=== PATIENT | male | born 1990 | race Caucasian/White ===

== ENCOUNTER 2017-09-18 07:28 | Inpatient (IN) | payer OTHER ==
[2017-09-18] MEDS ORDERED: SOD CHLORIDE 0.9% 1,000 ML IV (07:50)
[2017-09-18] MEDS: ONDANSETRON 4 MG INJ IV ×5 (08:13→23:59)
[2017-09-18] MEDS: CEFTRIAXONE 1 GM/50 ML (PMX) 50 ML IVPB (08:13)
[2017-09-18] MEDS: morphine 4 MG/ML VIAL IV (08:13)
[2017-09-18] MEDS: SODIUM CHLORIDE 0.9% 1L BAG IV* (08:14)
[2017-09-18 08:32] LABS: ADD MAN DIFF? NO
[2017-09-18 08:50] LABS: BASOPHILS % 0.4 % (0.0-2.0); HEMATOCRIT 40.6 % (42.0-52.0); HEMOGLOBIN 14.9 g/dl (14.0-18.0); LYMPHOCYTES # 2.4 10^3/ul (0.8-2.9); LYMPHOCYTES % 22.2 % (15.0-51.0); MEAN CORPUSCULAR HEMOGLOBIN 35.5 pg (29.0-33.0); MEAN CORPUSCULAR HGB CONC 36.7 g/dl (32.0-37.0); MEAN CORPUSCULAR VOLUME 96.7 fl (82.0-101.0); MEAN PLATELET VOLUME 10.1 fl (7.4-10.4); MONOCYTE # 0.9 10^3/ul (0.3-0.9); NEUTROPHIL # 7.3 10^3/ul (1.6-7.5); NEUTROPHILS % 68.9 % (39.0-77.0); PLATELET COUNT 122 10^3/UL (140-415); RED CELL DISTRIBUTION WIDTH 12.3 % (11.5-14.5)
[2017-09-18 08:50] LABS: WHITE BLOOD COUNT 10.6 10^3/ul (4.8-10.8)
[2017-09-18 09:03] LABS: ALANINE AMINOTRANSFERASE 125 IU/L (13-69); ALBUMIN 5.3 g/dl (3.3-4.9); ALBUMIN/GLOBULIN RATIO 1.26; ALKALINE PHOSPHATASE 142 IU/L (42-121); ANION GAP 27 (8-16); ASPARTATE AMINO TRANSFERASE 289 IU/L (15-46); BILIRUBIN,INDIRECT 1.6 mg/dl (0-1.1); BILIRUBIN,TOTAL 1.6 mg/dl (0.2-1.3); BLOOD UREA NITROGEN 8 mg/dl (7-20); CALCIUM 10.2 mg/dl (8.4-10.2); CARBON DIOXIDE 22 mmol/L (21-31); CHLORIDE 95 mmol/L (97-110); CREATININE 0.83 mg/dl (0.61-1.24); GLUCOSE 109 mg/dl (70-220); POTASSIUM 3.8 mmol/L (3.5-5.1); SODIUM 140 mmol/L (135-144); TOTAL PROTEIN 9.5 g/dl (6.1-8.1)
[2017-09-18 09:03] LABS: LACTIC ACID 2.8 mmol/L (0.5-2.0)
[2017-09-18 09:15] LABS: TROPONIN-I < 0.012 ng/ml (0.00-0.12)
[2017-09-18 09:22] LABS: INR 0.95; PROTIME 12.8 Sec (11.9-14.9)
[2017-09-18 09:23] LABS: PARTIAL THROMBOPLASTIN TIME 28.3 Sec (25.0-35.0)
[2017-09-18 09:32] LABS: LIPASE 393 U/L (23-300)
[2017-09-18] MEDS: HYDROmorphONE 0.5 MG/0.5 ML SYG IV (09:32)
[2017-09-18 11:13] LABS: LACTIC ACID 1.3 mmol/L (0.5-2.0)
[2017-09-18] MEDS ORDERED: ONDANSETRON 4 MG INJ IV (11:30)
[2017-09-18 12:12] LABS: ADD UMIC YES; UR ASCORBIC ACID NEGATIVE (NEGATIVE); UR BILIRUBIN (Dip) 1+ mg/dL (NEGATIVE); UR BLOOD (Dip) 1+ mg/dL (NEGATIVE); UR CLARITY SLIGHTLY CLOUDY (CLEAR); UR COLOR AMBER (YELLOW); UR GLUCOSE (Dip) NEGATIVE (NEGATIVE); UR KETONES (Dip) 1+ mg/dL (NEGATIVE); UR LEUKOCYTE ESTERASE (Dip) 2+ Leu/ul (NEGATIVE); UR MUCUS MANY /HPF (NONE SEEN); UR NITRITE (Dip) NEGATIVE (NEGATIVE); UR RBC 9 /HPF (0-5); UR SPECIFIC GRAVITY (Dip) 1.024 (1.003-1.030); UR SQUAMOUS EPITHELIAL CELL FEW /HPF (FEW); UR TOTAL PROTEIN (Dip) 2+ mg/dl (NEGATIVE); UR UROBILINOGEN (Dip) 1+ mg/dL (NEGATIVE); UR WBC 56 /HPF (0-5)
[2017-09-18] MEDS ORDERED: NACL 0.9% 3 ML SYG IV (12:30)
[2017-09-18] MEDS: SOD CHLORIDE 0.9% 1,000 ML IV ×3 (12:30→19:55)
[2017-09-18] MEDS ORDERED: ALPRAZOLAM 1 MG TAB PO (12:30)
[2017-09-18] MEDS ORDERED: LORAZEPAM 1 MG TAB PO (13:00)
[2017-09-18] MEDS: PANTOPRAZOLE 40 MG INJ IV ×2 (13:09→20:13)
[2017-09-18 13:19] LABS: LACTIC ACID 1.3 mmol/L (0.5-2.0)
[2017-09-18 13:24] LABS: ETHANOL < 10.0 mg/dl
[2017-09-18] MEDS: morphine 2 MG INJ IV ×2 (14:36→19:54)
[2017-09-18] MEDS ORDERED: LORAZEPAM 2 MG INJ IV ×2 (16:30)
[2017-09-18] MEDS: ACETAMINOPHEN 325 MG TAB PO (20:53)
[2017-09-19] MEDS: METOCLOPRAMIDE 10 MG INJ IV ×3 (01:49→20:32)
[2017-09-19] MEDS: OXYCODONE/ACETAMINOPHEN (10/325) TAB PO ×3 (01:50→10:26)
[2017-09-19] MEDS: SOD CHLORIDE 0.9% 1,000 ML IV ×2 (03:02→14:01)
[2017-09-19 05:16] LABS: ADD MAN DIFF? NO
[2017-09-19 05:20] LABS: ABNORMAL IP MESSAGE 1; BASOPHILS % 0.4 % (0.0-2.0); EOSINOPHILS # 0.1 10^3/ul (0.0-0.5); EOSINOPHILS % 1.1 % (0.0-7.0); HEMATOCRIT 33.6 % (42.0-52.0); LYMPHOCYTES # 1.9 10^3/ul (0.8-2.9); LYMPHOCYTES % 33.8 % (15.0-51.0); MEAN CORPUSCULAR HEMOGLOBIN 35.2 pg (29.0-33.0); MEAN CORPUSCULAR HGB CONC 35.7 g/dl (32.0-37.0); MEAN CORPUSCULAR VOLUME 98.5 fl (82.0-101.0); MEAN PLATELET VOLUME 10.4 fl (7.4-10.4); MONOCYTE # 0.6 10^3/ul (0.3-0.9); PLATELET COUNT 83 10^3/UL (140-415); POSITIVE DIFF @See below; RED BLOOD COUNT 3.41 10^6/ul (4.70-6.10); RED CELL DISTRIBUTION WIDTH 12.6 % (11.5-14.5)
[2017-09-19 05:20] LABS: WHITE BLOOD COUNT 5.6 10^3/ul (4.8-10.8)
[2017-09-19 06:03] LABS: ALANINE AMINOTRANSFERASE 77 IU/L (13-69); ALBUMIN 4.2 g/dl (3.3-4.9); ALKALINE PHOSPHATASE 89 IU/L (42-121); ANION GAP 20 (8-16); ASPARTATE AMINO TRANSFERASE 161 IU/L (15-46); BILIRUBIN,INDIRECT 0.8 mg/dl (0-1.1); BILIRUBIN,TOTAL 0.8 mg/dl (0.2-1.3); BLOOD UREA NITROGEN 2 mg/dl (7-20); CALCIUM 8.9 mg/dl (8.4-10.2); CARBON DIOXIDE 24 mmol/L (21-31); CHLORIDE 99 mmol/L (97-110); CREATININE 0.78 mg/dl (0.61-1.24); GLUCOSE 82 mg/dl (70-220); LIPASE 161 U/L (23-300); MAGNESIUM 1.4 mg/dl (1.7-2.5); POTASSIUM 3.9 mmol/L (3.5-5.1); SODIUM 139 mmol/L (135-144); TOTAL PROTEIN 7.7 g/dl (6.1-8.1)
[2017-09-19] MEDS ORDERED: VANCOMYCIN IV PER PHARMACY XX (07:30)
[2017-09-19] MEDS: ONDANSETRON 4 MG INJ IV ×2 (07:34→17:28)
[2017-09-19] MEDS: FOLIC ACID 1 MG TAB PO (09:51)
[2017-09-19] MEDS: MULTIVITAMINS THERAPEUTIC TAB PO (09:51)
[2017-09-19] MEDS: THIAMINE 100 MG TAB PO (09:51)
[2017-09-19] MEDS: VANCOMYCIN 1.5 GM in SOD CHLORIDE 0.9% 250 ML IVPB (09:56)
[2017-09-19 12:51] LABS: LYMPHOCYTE - % CD4 (HELPER) 23 % (30-61); LYMPHOCYTE - %CD8 (SUPPRESSOR) 56 % (12-42); LYMPHOCYTE - ABSOLUTE 2458 cells/uL (850-3900); LYMPHOCYTE - ABSOLUTE CD4 560 cells/uL (490-1740); LYMPHOCYTE - ABSOLUTE CD8 1378 cells/uL (180-1170); LYMPHOCYTE - CD4/CD8 RATIO 0.41 (0.86-5.00)
[2017-09-19] MEDS: FAMOTIDINE 20 MG INJ IV ×2 (13:56→20:32)
[2017-09-19] MEDS: DOXYCYCLINE 100 MG in SOD CHLORIDE 0.9% 250 ML IVPB ×2 (13:59→21:19)
[2017-09-19] MEDS: MAGNESIUM SULFATE 2 GM/50 ML 50 ML IVPB (14:00)
[2017-09-19] MEDS: VANCOMYCIN 1 GM 250 ML IVPB (17:29)
[2017-09-19] MEDS: morphine 2 MG INJ IV ×3 (17:36→20:33)
[2017-09-20] MEDS: VANCOMYCIN 1 GM 250 ML IVPB (01:04)
[2017-09-20] MEDS: OXYCODONE/ACETAMINOPHEN (10/325) TAB PO ×2 (01:05→05:14)
[2017-09-20] MEDS: SOD CHLORIDE 0.9% 1,000 ML IV (03:39)
[2017-09-20] MEDS: ONDANSETRON 4 MG INJ IV ×2 (05:14→13:53)
[2017-09-20 06:33] LABS: ADD MAN DIFF? NO
[2017-09-20 06:43] LABS: WHITE BLOOD COUNT 5.7 10^3/ul (4.8-10.8)
[2017-09-20 06:43] LABS: BASOPHILS % 0.7 % (0.0-2.0); EOSINOPHILS # 0.1 10^3/ul (0.0-0.5); EOSINOPHILS % 1.2 % (0.0-7.0); HEMATOCRIT 35.3 % (42.0-52.0); HEMOGLOBIN 12.6 g/dl (14.0-18.0); LYMPHOCYTES # 1.7 10^3/ul (0.8-2.9); LYMPHOCYTES % 29.1 % (15.0-51.0); MEAN CORPUSCULAR HEMOGLOBIN 35.2 pg (29.0-33.0); MEAN CORPUSCULAR HGB CONC 35.7 g/dl (32.0-37.0); MEAN CORPUSCULAR VOLUME 98.6 fl (82.0-101.0); MEAN PLATELET VOLUME 10.1 fl (7.4-10.4); MONOCYTE # 0.7 10^3/ul (0.3-0.9); MONOCYTES % 11.9 % (0.0-11.0); NEUTROPHIL # 3.2 10^3/ul (1.6-7.5); NEUTROPHILS % 56.6 % (39.0-77.0); PLATELET COUNT 111 10^3/UL (140-415); RED BLOOD COUNT 3.58 10^6/ul (4.70-6.10); RED CELL DISTRIBUTION WIDTH 12.6 % (11.5-14.5)
[2017-09-20 07:07] LABS: ALANINE AMINOTRANSFERASE 79 IU/L (13-69); ALBUMIN 4.6 g/dl (3.3-4.9); ALBUMIN/GLOBULIN RATIO 1.35; ALKALINE PHOSPHATASE 96 IU/L (42-121); ANION GAP 21 (8-16); ASPARTATE AMINO TRANSFERASE 197 IU/L (15-46); BILIRUBIN,INDIRECT 0.4 mg/dl (0-1.1); BILIRUBIN,TOTAL 0.4 mg/dl (0.2-1.3); BLOOD UREA NITROGEN 2 mg/dl (7-20); CALCIUM 9.1 mg/dl (8.4-10.2); CARBON DIOXIDE 22 mmol/L (21-31); CHLORIDE 99 mmol/L (97-110); CREATININE 0.73 mg/dl (0.61-1.24); GLUCOSE 62 mg/dl (70-220); POTASSIUM 3.6 mmol/L (3.5-5.1); SODIUM 138 mmol/L (135-144)
[2017-09-20] MEDS: FOLIC ACID 1 MG TAB PO (08:25)
[2017-09-20] MEDS: MULTIVITAMINS THERAPEUTIC TAB PO (08:25)
[2017-09-20] MEDS: THIAMINE 100 MG TAB PO (08:25)
[2017-09-20] MEDS: DOXYCYCLINE 100 MG in SOD CHLORIDE 0.9% 250 ML IVPB (08:25)
[2017-09-20 09:10] LABS: VANCOMYCIN,TROUGH 10.1 ug/ml (10.0-20.0)
[2017-09-20] MEDS: FAMOTIDINE 20 MG INJ IV (09:17)
[2017-09-20] MEDS: morphine 2 MG INJ IV (09:23)
[2017-09-20] MEDS: SENNA TAB PO (11:23)
[2017-09-20] MEDS: DOCUSATE SODIUM 100 MG CAP PO (11:23)
[2017-09-20] MEDS ORDERED: INFLUENZA VIRUS VACCINE 0.5 ML SYG IM* (20:00)
== END 2017-09-20 17:55 | disposition home or self-care (01) | DRG 432 ==
LOC: E/R 07:28 → MS3 11:29
DX: K70.10 Alcoholic hepatitis without ascites (principal); B20 Human immunodeficiency virus [HIV] disease; K85.90 Acute pancreatitis without necrosis or infection, unspecified; K92.0 Hematemesis; N30.00 Acute cystitis without hematuria; F10.10 Alcohol abuse, uncomplicated; F41.8 Other specified anxiety disorders; Z72.0 Tobacco use; K29.70 Gastritis, unspecified, without bleeding; K76.0 Fatty (change of) liver, not elsewhere classified
CPT/HCPCS: 36415; 71045; 74176; 76705; 76870; 80053; 80202; 80306; 81001; 82962; 83605; 83690; 83735; 84484; 85025; 85610; 85730; 86360; 86850; 86900; 86901; 87040; 87086; 87591; 90686; 93005; 96361; 96374; 96375; 96376; 99291-25

== ENCOUNTER 2017-09-28 10:17 | Emergency (ER) | payer OTHER ==
[2017-09-28] MEDS: HYDROCODONE/APAP (5/325) TAB PO (10:51)
[2017-09-28] MEDS: DIPHTH/TET/ACEL PERTUSS (ADULT) 0.5 ML VIAL IM (10:52)
[2017-09-28] MEDS: LIDOCAINE 1% (MDV) 10 ML INJ INJ (10:52)
== END 2017-09-28 11:52 | disposition home or self-care (01) ==
LOC: FTE 10:17
DX: S01.81XA Laceration without foreign body of other part of head, initial encounter (principal); F17.210 Nicotine dependence, cigarettes, uncomplicated; V18.4XXA Pedal cycle driver injured in noncollision transport accident in traffic accident, initial encounter; Z23 Encounter for immunization
CPT/HCPCS: 12013; 90471; 90715; 99283-25

== ENCOUNTER 2017-10-05 12:36 | Emergency (ER) | payer OTHER | END 2017-10-05 13:13 | disposition home or self-care (01) | LOC: E/R 13:13 | DX: Z48.02 Encounter for removal of sutures (principal); Z87.891 Personal history of nicotine dependence | CPT/HCPCS: 99281 ==

== ENCOUNTER 2017-10-10 14:41 | Inpatient (IN) | payer OTHER ==
[2017-10-10] MEDS: morphine 4 MG/ML VIAL IV (15:44)
[2017-10-10] MEDS: ONDANSETRON 4 MG INJ IV (15:44)
[2017-10-10] MEDS: FAMOTIDINE 20 MG INJ IV (15:44)
[2017-10-10] MEDS: SOD CHLORIDE 0.9% 1,000 ML IV ×2 (15:49→18:59)
[2017-10-10 15:55] LABS: ADD MAN DIFF? NO
[2017-10-10 15:58] LABS: BASOPHILS % 0.4 % (0.0-2.0); EOSINOPHILS # 0.1 10^3/ul (0.0-0.5); EOSINOPHILS % 1.1 % (0.0-7.0); HEMATOCRIT 41.1 % (42.0-52.0); HEMOGLOBIN 14.3 g/dl (14.0-18.0); LYMPHOCYTES # 1.8 10^3/ul (0.8-2.9); LYMPHOCYTES % 17.5 % (15.0-51.0); MEAN CORPUSCULAR HEMOGLOBIN 35.1 pg (29.0-33.0); MEAN CORPUSCULAR HGB CONC 34.8 g/dl (32.0-37.0); MEAN PLATELET VOLUME 9.9 fl (7.4-10.4); MONOCYTE # 0.8 10^3/ul (0.3-0.9); MONOCYTES % 7.3 % (0.0-11.0); NEUTROPHIL # 7.7 10^3/ul (1.6-7.5); NEUTROPHILS % 73.1 % (39.0-77.0); PLATELET COUNT 196 10^3/UL (140-415); RED BLOOD COUNT 4.07 10^6/ul (4.70-6.10); RED CELL DISTRIBUTION WIDTH 12.7 % (11.5-14.5)
[2017-10-10 15:58] LABS: WHITE BLOOD COUNT 10.5 10^3/ul (4.8-10.8)
[2017-10-10 16:30] LABS: ALANINE AMINOTRANSFERASE 108 IU/L (13-69); ALBUMIN 4.6 g/dl (3.3-4.9); ALBUMIN/GLOBULIN RATIO 1.09; ALKALINE PHOSPHATASE 123 IU/L (42-121); ANION GAP 18 (8-16); ASPARTATE AMINO TRANSFERASE 151 IU/L (15-46); BILIRUBIN,INDIRECT 0.5 mg/dl (0-1.1); BILIRUBIN,TOTAL 0.5 mg/dl (0.2-1.3); BLOOD UREA NITROGEN 7 mg/dl (7-20); CALCIUM 9.8 mg/dl (8.4-10.2); CARBON DIOXIDE 26 mmol/L (21-31); CHLORIDE 100 mmol/L (97-110); CREATININE 0.86 mg/dl (0.61-1.24); GLUCOSE 110 mg/dl (70-220); POTASSIUM 3.9 mmol/L (3.5-5.1); SODIUM 140 mmol/L (135-144); TOTAL PROTEIN 8.8 g/dl (6.1-8.1)
[2017-10-10 16:58] LABS: LIPASE 21678 U/L (23-300)
[2017-10-10] MEDS: HYDROmorphONE 0.5 MG/0.5 ML SYG IV ×3 (17:14→23:18)
[2017-10-10] MEDS ORDERED: HYDROmorphONE 0.5 MG/0.5 ML SYG IV (19:00)
[2017-10-10] MEDS ORDERED: ONDANSETRON 4 MG INJ IV ×3 (19:00→19:30)
[2017-10-10 19:12] LABS: ADD UMIC NO; UR ASCORBIC ACID NEGATIVE (NEGATIVE); UR BILIRUBIN (Dip) NEGATIVE (NEGATIVE); UR BLOOD (Dip) NEGATIVE (NEGATIVE); UR CLARITY CLEAR (CLEAR); UR COLOR STRAW (YELLOW); UR GLUCOSE (Dip) NEGATIVE (NEGATIVE); UR KETONES (Dip) NEGATIVE (NEGATIVE); UR LEUKOCYTE ESTERASE (Dip) NEGATIVE Leu/ul (NEGATIVE); UR NITRITE (Dip) NEGATIVE (NEGATIVE); UR SPECIFIC GRAVITY (Dip) 1.004 (1.003-1.030); UR TOTAL PROTEIN (Dip) NEGATIVE (NEGATIVE); UR UROBILINOGEN (Dip) NEGATIVE (NEGATIVE)
[2017-10-10] MEDS ORDERED: NACL 0.9% 3 ML SYG IV (19:30)
[2017-10-10] MEDS ORDERED: POTASSIUM CHLORIDE 50 ML IVPB (19:30)
[2017-10-10] MEDS ORDERED: ZOLPIDEM 5 MG TAB PO (19:30)
[2017-10-10] MEDS ORDERED: ACETAMINOPHEN 325 MG TAB PO ×2 (19:30)
[2017-10-10] MEDS ORDERED: DOCUSATE SODIUM 100 MG CAP PO (19:30)
[2017-10-10] MEDS ORDERED: BISACODYL (EC) 5 MG TAB PO (19:30)
[2017-10-10] MEDS ORDERED: HYDROCODONE/APAP (5/325) TAB PO (19:30)
[2017-10-10] MEDS ORDERED: ALPRAZOLAM 1 MG TAB PO (20:00)
[2017-10-10 20:14] LABS: ADD UMIC NO; UR ASCORBIC ACID NEGATIVE (NEGATIVE); UR BILIRUBIN (Dip) NEGATIVE (NEGATIVE); UR BLOOD (Dip) NEGATIVE (NEGATIVE); UR CLARITY CLEAR (CLEAR); UR COLOR STRAW (YELLOW); UR GLUCOSE (Dip) NEGATIVE (NEGATIVE); UR KETONES (Dip) NEGATIVE (NEGATIVE); UR LEUKOCYTE ESTERASE (Dip) NEGATIVE Leu/ul (NEGATIVE); UR NITRITE (Dip) NEGATIVE (NEGATIVE); UR SPECIFIC GRAVITY (Dip) 1.004 (1.003-1.030); UR TOTAL PROTEIN (Dip) NEGATIVE (NEGATIVE); UR UROBILINOGEN (Dip) NEGATIVE (NEGATIVE)
[2017-10-10] MEDS: DEXTROSE 5%-0.45% NACL 1,000 ML IV (20:16)
[2017-10-10 20:33] LABS: GAMMA GLUTAMYL TRANSPEPTIDASE 546 IU/L (0-50); LACTIC ACID 1.1 mmol/L (0.5-2.0)
[2017-10-10 20:37] LABS: AMMONIA < 9 umol/l (9-30)
[2017-10-10 20:47] LABS: COCAINE Negative (NEGATIVE)
[2017-10-10 20:49] LABS: AMPHETAMINE/METHAMPHETAMINE Negative (NEGATIVE); BARBITURATES Negative (NEGATIVE); BENZODIAZEPINES Positive (NEGATIVE); CANNABINOIDS Negative (NEGATIVE); OPIATES Positive (NEGATIVE)
[2017-10-10 21:02] LABS: HEPATITIS B SURFACE ANTIGEN NEGATIVE (NEGATIVE)
[2017-10-10 21:17] LABS: ERYTHROCYTE SEDIMENTATION RATE 24 mm/Hr (0-15)
[2017-10-10 21:19] LABS: HEPATITIS B SURFACE ANTIBODY POSITIVE (NEGATIVE)
[2017-10-10 21:20] LABS: HEPATITIS B CORE ANTIBODY NEGATIVE (NEGATIVE); HEPATITIS C VIRAL ANTIBODY NEGATIVE (NEGATIVE)
[2017-10-10] MEDS: RIFAXIMIN 550 MG TAB PO (21:44)
[2017-10-10] MEDS: CIPROFLOXACIN 400MG/D5W 200 ML IVPB (21:46)
[2017-10-11] MEDS: metroNIDAZOLE 500 MG/NS (PMX) 100 ML IVPB ×2 (00:28→05:50)
[2017-10-11] MEDS: DEXTROSE 5%-0.45% NACL 1,000 ML IV ×2 (03:24→10:25)
[2017-10-11] MEDS: HYDROmorphONE 0.5 MG/0.5 ML SYG IV ×2 (04:25→09:32)
[2017-10-11] MEDS: PANTOPRAZOLE 40 MG INJ IV (05:50)
[2017-10-11 06:35] LABS: CHOL/HDL RATIO 3.3 RATIO; HDL CHOLESTEROL 51 mg/dl (30-63); LDL CHOLESTEROL,CALCULATED 89 mg/dl; TRIGLYCERIDES 149 mg/dl (0-149)
[2017-10-11 06:35] LABS: CHOLESTEROL 170 mg/dl (100-200)
[2017-10-11 07:01] LABS: HEMOGLOBIN A1C 4.7 % (0-5.9)
[2017-10-11 07:19] LABS: FREE THYROXINE INDEX (Calc) 2.06 ug/ml (0.65-3.89)
[2017-10-11 07:23] LABS: T3 UPTAKE 36.2 % (23.5-40.5); T4 (THYROXINE) 5.7 ug/dl (5.5-11.0)
[2017-10-11 09:00] LABS: LIPASE 3436 U/L (23-300)
[2017-10-11] MEDS: MULTIVITAMINS 10 ML, THIAMINE 100 MG, FOLIC ACID 1 MG in SOD CHLORIDE 0.9% 1,000 ML IVPB (09:14)
[2017-10-11] MEDS ORDERED: OXYCODONE/ACETAMINOPHEN (5/325) TAB PO (14:00)
== END 2017-10-11 16:30 | disposition home or self-care (01) | DRG 438 ==
LOC: FTE 14:41 → MS3 19:02
DX: K85.20 Alcohol induced acute pancreatitis without necrosis or infection (principal); B20 Human immunodeficiency virus [HIV] disease; K70.10 Alcoholic hepatitis without ascites; E86.0 Dehydration; K29.80 Duodenitis without bleeding; K29.20 Alcoholic gastritis without bleeding; K70.0 Alcoholic fatty liver; F10.20 Alcohol dependence, uncomplicated; E78.5 Hyperlipidemia, unspecified; Z87.891 Personal history of nicotine dependence
CPT/HCPCS: 36415; 76705; 80053; 80061; 80307; 81003; 82140; 82977; 83036; 83605; 83690; 84436; 84479; 85025; 85651; 86704; 86706; 86709; 86803; 87040; 87086; 87340; 96374; 96375; 96376; 99285-25

== ENCOUNTER 2018-08-02 11:11 | Emergency (ER) | payer BC, OTHER | END 2018-08-02 13:07 | disposition home or self-care (01) | LOC: FTE 11:11 | DX: J06.9 Acute upper respiratory infection, unspecified (principal); F17.210 Nicotine dependence, cigarettes, uncomplicated; Z21 Asymptomatic human immunodeficiency virus [HIV] infection status | CPT/HCPCS: 99283 ==